=== PATIENT | female | born 1995 | race Two or more races ===

== ENCOUNTER 2018-01-08 00:40 | Emergency (ER) | payer BC, MEDICAID ==
[2018-01-08 00:59] VITALS: BP 124/89
[2018-01-08 01:29] LABS: BILIRUBIN,URINE NEGATIVE (NEGATIVE); GLUCOSE, URINE (UA) NEGATIVE (NEGATIVE); KETONES,URINE (UA) >=80 mg/dL (NEGATIVE); LEUKOCYTE ESTERASE, URINE NEGATIVE (NEGATIVE); NITRITE,URINE NEGATIVE (NEGATIVE); OCCULT BLOOD,URINE NEGATIVE (NEGATIVE); PH,URINE 8.5 PH (5.0-7.5); PROTEIN,URINE NEGATIVE (NEGATIVE); UROBILINOGEN,URINE 0.2 (NORMAL) E.U./dL (NORMAL)
[2018-01-08 01:34] LABS: CLARITY,URINE HAZY (CLEAR); HCG UR QUAL NEGATIVE
[2018-01-08 01:36] LABS: BACTERIA,URINE Many /HPF (None Seen); RBC,URINE 0-5 /HPF (0-5); SQUAMOUS EPITHELIAL CELL,UR MOD Squamous (<= Few)
[2018-01-08] MEDS ORDERED: ONDANSETRON ODT 4 MG TABLET TL STA (01:38)
[2018-01-08] MEDS ORDERED: DICYCLOMINE 10 MG CAPSULE PO STA (01:39)
[2018-01-08] MEDS ORDERED: LOPERAMIDE 2 MG CAPSULE PO STA (01:40)
[2018-01-08] MEDS ORDERED: ONDANSETRON ODT 4 MG Prepack 2 TL STA (01:46)
--- NOTE | 2018-01-08 01:49 | ED Physician Documentation ---
PD HPI NVD - Stated complaint Stated Complaint: VOMITING - Chief complaint Chief Complaint: Abd Pain - History obtained from History obtained from: Patient, Friend - History of Present Illness Timing - onset: Today Timing - details: Gradual onset, Still present Associated symptoms: Abdominal pain Contributing factors: No: Travel, Recent antibiotics, Alcohol use Similar symptoms before: No diagnosis Recently seen: Not recently seen - Additonal information Additional information: Patient is a 22 year old female with no significant past medical history who is presenting to the emergency department for nausea, vomiting and diarrhea. Patient states that it started today and she has had multiple episodes of both and has not been able to keep anything down. Review of Systems Constitutional: reports: Fever, Chills Eyes: denies: Decreased vision, Photophobia Ears: reports: Reviewed and negative Nose: reports: Reviewed and negative Throat: reports: Reviewed and negative Cardiac: denies: Chest pain / pressure, Palpitations Respiratory: reports: Reviewed and negative GI: reports: Abdominal Pain, Nausea, Vomiting, Diarrhea : reports: Reviewed and negative Skin: denies: Rash, Lesions Musculoskeletal: reports: Reviewed and negative Neurologic: reports: Generalized weakness. denies: Near syncope, Syncope, Altered mental status Immunocompromised: denies: Immunocompromised PD PAST MEDICAL HISTORY - Past Medical History Cardiovascular: None Respiratory: None Neuro: None Endocrine/Autoimmune: None GI: None [employer]: None : None HEENT: None Psych: None Musculoskeletal: None Derm: None - Past Surgical History Past Surgical History: Yes - Present Medications Home Medications: Ambulatory Orders Medication Instructions Recorded Confirmed Ondansetron Odt [Zofran] 4 mg TL Q6H PRN #20 tablet 01/08/18 - Allergies Allergies/Adverse Reactions: Allergies Allergy/AdvReac Type Severity Reaction Status Date / Time No Known Drug Allergies Allergy Verified 01/08/18 00:59 - Social History Does the pt smoke?: Yes Smoking Status: Current every day smoker Does the pt drink ETOH?: No Does the pt have substance abuse?: No - Immunizations Immunizations are current?: Yes - POLST Patient has POLST: No PD ED PE NORMAL - Vitals Vital signs reviewed: Yes - General General: Alert and oriented X 3, No acute distress - HEENT HEENT: Atraumatic, PERRL, Moist mucous membranes - Neck Neck: Supple, no meningeal sign - Cardiac Cardiac: RRR, No murmur - Respiratory Respiratory: No respiratory distress, Clear bilaterally - Abdomen Abdomen: Soft - Derm Derm: Normal color, Warm and dry, No rash - Extremities Extremities: No deformity, Normal ROM s pain - Neuro Neuro: Alert and oriented X 3, No motor deficit, Normal speech PD ED PE EXPANDED - Abdomen Abdomen: Tender to palpation, Generalized/diffuse. No: Rebound, Guarding Results - Vitals Vitals: Vital Signs - 24 hr 01/08/18 00:57 Temperature 35.8 C L Heart Rate 70 Respiratory 18 Rate Blood Pressure 124/89 H O2 Saturation 100 Oxygen O2 Source Room air - Labs Labs: Laboratory Tests 01/08/18 01:00 Urine Color YELLOW Urine Clarity HAZY Urine pH 8.5 H Ur Specific [place] 1.015 Urine Protein NEGATIVE Urine Glucose (UA) NEGATIVE Urine Ketones >=80 H Urine Occult Blood NEGATIVE Urine Nitrite NEGATIVE Urine Bilirubin NEGATIVE Urine Urobilinogen 0.2 (NORMAL) Ur Leukocyte Esterase NEGATIVE Urine RBC 0-5 Urine WBC 0-3 Ur Squamous Epith Cells MOD Squamous H Urine Bacteria Many H Ur Microscopic Review INDICATED Urine Culture Comments NOT INDICATED Urine HCG, Qual NEGATIVE PD MEDICAL DECISION MAKING - ED course Complexity details: reviewed old records, reviewed results, re-evaluated patient , considered differential, d/w patient ED course: Patient was seen and examined at bedside. Patient's urine was collected. Patient was treated with zofran, bentyl and loperamide. Patient was able to tolerate PO and showed no clinical signs of dehydration. Patient was stable for discharge with outpatient follow up. Departure - Departure Disposition: 01 Home, Self Care Clinical Impression: Gastroenteritis Condition: Good Instructions: ED Gastroenteritis Viral Follow-Up: Moncho Gomez MD [Primary Care Provider] - Within 3 Days Prescriptions: Ondansetron Odt [Zofran] 4 mg TL Q6H PRN #20 tablet PRN Reason: Nausea / Vomiting Comments: Your symptoms today are being caused by gastroenteritis. It is likely viral in nature. You should take the zofran for nausea and try to stay well hydrated with water and electrolyte solution. You should follow up with your doctor if your sympotms persist. You may return to the emergency department at any time for new, worsening or uncontrollable symptoms. Discharge Date/Time: 01/08/18 01:56
== END 2018-01-08 01:56 | disposition home or self-care (01) ==
LOC: ED 00:40
DX: K52.9 Noninfective gastroenteritis and colitis, unspecified (principal)
CPT/HCPCS: 81001; 81025; 99283; A9270; Q0162; 81003; 87086

== ENCOUNTER 2020-01-25 17:31 | Outpatient (CLI) | payer MEDICAID | END 2020-01-25 17:32 | disposition home or self-care (01) | LOC: COV 17:31 | PROVIDERS: ATTEND Family Medicine | DX: R05 Cough (principal); R50.9 Fever, unspecified | CPT/HCPCS: 81599 ==